=== PATIENT | female | born 1980 | race Asian ===

== ENCOUNTER 2022-05-12 18:35 | Emergency (ER) | payer BC ==
[~2022-05-12] VITALS: Ht 160 cm; Wt 61.7 kg
[~2022-05-12 18:35] MED LIST: ADIPEX PO; BIRTH CONTROL; HYDR25TA60 PO
[2022-05-12 18:40] VITALS: TEMP 98.9
[2022-05-12 19:54] LABS: POTASSIUM 3.3 mmol/L (3.6-5.2)
[2022-05-12 19:57] LABS: PLATELET COUNT 397 K/uL (152-353)
[2022-05-12 20:08] LABS: PARTIAL THROMBOPLASTIN TIME 24.1 SECONDS (24.5-33.6)
[2022-05-12 21:45] VITALS: BP 131/75
== END 2022-05-12 21:46 | disposition home or self-care (01) ==
LOC: ED 18:35
PROVIDERS: Hospitalist
DX: E87.6 Hypokalemia (principal); E86.0 Dehydration
CPT/HCPCS: 80053; 80320; 82550; 83880; 84484; 85007; 85027; 85610; 85730; 93005; 96360; 99283